=== PATIENT | male | born 1985 | race African-American/Black ===

== ENCOUNTER 2017-03-11 05:21 | Emergency (ER) | payer MEDICAID ==
[~2017-03-11] VITALS: Ht 165.1 cm; Wt 81.8 kg
[2017-03-11] MEDS ORDERED: FURO40I IM (05:39)
[2017-03-11] MEDS ORDERED: LISI-660 PO (05:39)
[2017-03-11] MEDS ORDERED: ELVI1TAB3 PO (05:39)
[2017-03-11] MEDS ORDERED: FURO20 PO (05:39)
[2017-03-11] MEDS ORDERED: CARV3 PO (05:39)
[2017-03-11] MEDS ORDERED: SPIR25 PO (05:39)
[2017-03-11 05:54] LABS: BASOPHILS # (AUTO) 0.02 K/uL (0.00-0.20); BASOPHILS % (AUTO) 0.4 % (0.0-2.0); EOSINOPHILS # (AUTO) 0.02 K/uL (0.00-0.70); HEMATOCRIT 38.9 % (36-46); HEMOGLOBIN 12.8 g/dL (12.0-16.0); LYMPHOCYTES # (AUTO) 1.5 K/uL (1.0-4.8); LYMPHOCYTES % (AUTO) 28.8 % (22.0-44.0); MEAN CORPUSCULAR HGB CONC 32.8 G/dL (31.0-37.0); MEAN CORPUSCULAR VOLUME 88 fL (80-100); MONOCYTES # (AUTO) 0.2 K/uL (0.1-1.0); MONOCYTES % (AUTO) 4.7 % (2.0-9.0); NEUTROPHILS # (AUTO) 3.4 K/uL (1.8-7.7); NEUTROPHILS % (AUTO) 65.6 % (40.0-70.0); PLATELET COUNT (AUTO) 241 K/uL (150-450); RED CELL DISTRIBUTION WIDTH 14.8 % (11.5-14.5); WHITE BLOOD COUNT (AUTO) 5.1 K/uL (4.5-11.0)
[2017-03-11 06:00] LABS: CALCIUM, TOTAL 9.6 mg/dL (8.8-10.5); CREATININE 1.4 mg/dL (0.60-1.30)
[2017-03-11 06:06] LABS: ALBUMIN 4.3 g/dL (3.4-5.0); BILIRUBIN,TOTAL 0.4 mg/dL (0.1-1.0); TOTAL PROTEIN, SERUM 9.2 g/dL (6.4-8.2)
[2017-03-11] MEDS ORDERED: ONDANSETRON HCL 4 MG TABLET PO ONE (06:45)
[2017-03-11] MEDS ORDERED: IBUPROFEN 800 MG TABLET PO ONE (06:45)
[2017-03-11 08:12] LABS: INFLUENZA TYPE B NEGATIVE FOR TYPE B (NEGATIVE)
[2017-03-11] MEDS ORDERED: SODIUM CHLORIDE 0.9% 1,000 ML IV ONE ×2 (08:15→09:30)
[2017-03-11] MEDS ORDERED: PROMETHAZINE HCL 12.5 MG in SODIUM CHLORIDE 0.9% 50 ML IV ONE (09:30)
[2017-03-11] MEDS ORDERED: MORPHINE SULFATE 4 MG/ML SYRINGE IVP ONE (10:15)
[2017-03-11] MEDS ORDERED: KETOROLAC TROMETHAMINE 30 MG/ML VIAL IVP ONE (10:15)
[2017-03-11] MEDS ORDERED: DONNATAL/LIDOCAINE/MAALOX 55 ML BOTTLE PO ONE (10:15)
[2017-03-11] MEDS ORDERED: SODIUM CHLORIDE 0.9% 100 ML ONE (10:25)
[2017-03-11 10:55] LABS: ADD UA MICROSCOPIC YES; APPEARANCE,URINE CLEAR (CLEAR); GLUCOSE, URINE (UA) NEGATIVE (NEGATIVE); KETONES,URINE TRACE mg/dL (NEGATIVE); LEUKOCYTE ESTERASE ,URINE NEGATIVE (NEGATIVE); OCCULT BLOOD,URINE NEGATIVE (NEGATIVE); PH,URINE 8.5 (5.0-8.0); PROTEIN,URINE POS 1+ (NEGATIVE)
[2017-03-11 11:00] LABS: RBC,URINE 0-2 /HPF (0-2); SQUAMOUS EPITHELIAL CELL,UR Moderate /LPF (None Seen); WBC,URINE None Seen /HPF (0-5)
[2017-03-11 11:46] VITALS: BP 123/60
== END 2017-03-11 12:29 | disposition home or self-care (01) ==
LOC: EMS 05:23 → EDSEX 05:23 → EMS 12:29
DX: R07.9 Chest pain, unspecified (principal); R11.2 Nausea with vomiting, unspecified; F12.10 Cannabis abuse, uncomplicated; F14.10 Cocaine abuse, uncomplicated
CPT/HCPCS: 36415; 71020; 80053; 80307; 81001; 83690; 84484; 85025; 87804; 93005; 96374; 96375; 99285; J1885; J2270; J2550; J7030; J7050 ×2; Q0162; Z7610